=== PATIENT | female | born 1995 | race Caucasian/White ===

== ENCOUNTER 2018-11-06 11:27 | Day surgery (SDC) | payer OTHER ==
[2018-11-06 12:17] VITALS: BMI 19.3
[2018-11-06 13:56] VITALS: TEMP 99.3
[2018-11-06 14:18] VITALS: PULSE 88
[2018-11-06 14:30] VITALS: BP 116/71
--- NOTE | 2018-11-08 16:37 | PATH ---
Surgical Pathology Report Patient Name: KRISTIAN MARROQUIN [facility]. Rec. #: [id number] /Age/Gender: 1995 (Age: 23) / F Account: [id number] Location: U-ENDOSCOPY Taken: 11/06/2018 Received: 11/07/2018 Reported: 11/08/2018 Physicians: Kenji Regan D.O. Specimen(s) Received A: GASTRIC ANGULARIS AND BODY B: RIGHT COLON BIOPSY C: TRANSVERSE COLON BIOPSY D: LEFT COLON BIOPSY Clinical History Functional dyspepsia, functional diarrhea Postoperative diagnosis: Dyspepsia, abdominal pain, diarrhea, rule out microscopic colitis Final Diagnosis A. GASTRIC ANGULARIS AND BODY, BIOPSY: GASTRIC MUCOSA WITH CHRONIC GASTRITIS. IMMUNOSTAIN FOR H. PYLORI IS NEGATIVE. NEGATIVE FOR INTESTINAL METAPLASIA. B. RIGHT COLON BIOPSY: COLONIC MUCOSA WITH REACTIVE LYMPHOID AGGREGATE IN THE LAMINA PROPRIA. NO HISTOLOGIC EVIDENCE OF MICROSCOPIC COLITIS. C. TRANSVERSE COLON BIOPSY: COLONIC MUCOSA WITH REACTIVE LYMPHOID AGGREGATE IN THE LAMINA PROPRIA. NO HISTOLOGIC EVIDENCE OF MICROSCOPIC COLITIS. D. LEFT COLON BIOPSY: COLONIC MUCOSA WITH REACTIVE LYMPHOID AGGREGATES IN THE LAMINA PROPRIA. NO HISTOLOGIC EVIDENCE OF MICROSCOPIC COLITIS. Electronically Signed Campos Salvador M.D. Gross Description A. Received in formalin, labeled "angularis and body" are 2 mcgowan, irregular portions of soft tissue measuring 0.4 and 0.6 cm. in greatest dimension. The specimens are submitted in toto in one cassette. B. Received in formalin, labeled "biopsy right colon" are 2 mcgowan, irregular portions of soft tissue measuring 0.3 and 0.5 cm. in greatest dimension. The specimens are submitted in toto in one cassette. C. Received in formalin, labeled "biopsy transverse colon" is a mcgowan, irregular portion of soft tissue measuring 0.7 cm. in greatest dimension. The specimen is submitted in toto in one cassette. D. Received in formalin, labeled "biopsy left colon" are 2 mcgowan, irregular portions of soft tissue measuring 0.1 and 0.9 cm. in greatest dimension. The specimens are submitted in toto in one cassette. DL11/07/2018 saudi11/07/2018
== END 2018-11-06 14:50 | disposition home or self-care (01) ==
LOC: JASU-ENDO 11:27
PROVIDERS: ATTEND Internal Medicine Gastroenterology
PROC: 0DBE8ZX Excision of Large Intestine, Via Natural or Artificial Opening Endoscopic, Diagnostic (ICD-10-PCS; 2018-11-06)
PROC: 0DB68ZX Excision of Stomach, Via Natural or Artificial Opening Endoscopic, Diagnostic (ICD-10-PCS; principal; 2018-11-06 12:45)
DX: K29.50 Unspecified chronic gastritis without bleeding (principal); R19.7 Diarrhea, unspecified
CPT/HCPCS: 84703; 88305-TC; 88342-TC